=== PATIENT | female | born 1970 | race Caucasian/White ===

== ENCOUNTER 2018-07-24 16:37 | Inpatient (IN) | payer OTHER ==
[~2018-07-24] VITALS: Ht 170.2 cm; Wt 89.4 kg
--- NOTE | ~2018-07-24 | HC ---
[facility] [place] [address] CONSULTATION Name: ABBIE CASSIDY Room #: 207-P [facility] IN M.R.#: [id number] Admission: 07/24/18 Attend Phys: Richard García MD Discharge: 07/25/18 Date of : 72 Report #: [id number] THIS REPORT FOR: //name// CC: Amos García HISTORY OF PRESENT ILLNESS: The patient is a 48-year-old right-handed woman, who was admitted to the hospital on 07/24/2018 under the care of Dr. Richard García. Chief complaint is vertigo, which was worse than usual, described as occurring shortly after she stood up. She noticed facial numbness bilaterally, as well as numbness in her hands shortly after. The patient did not seek care immediately, but over the course of the day, it tended to get worse and felt worse when she awoke on the day of admission. At the present time, it is much better. She states that she has had chronic vertigo for at least 15 years, which is position related and for which she has to focus on certain points in the room to walk. She has not fallen. The patient denies hearing loss, or ringing in her ears except on rare occasions. She denies nausea and vomiting. She states that a number of years ago, she noted blood in her stool and a workup suggested the possibility of Crohn's disease, although she has had several colonoscopies since then and reports that the spring tester believes that she does not have Crohn's disease. She takes no medication and is having no GI symptoms. She was diagnosed with fibromyalgia about 15 years ago as well, for which she takes no medication, although she was given Prozac at one point, but it tended to make her anxiety worse. The patient has had trauma to her back. She reports chronic back pain from a fracture T12 from an accident in 1994 and a lumbar injury from another accident in 1998. She was prescribed tramadol for pain, but she does not take it. She reports that she is under more stress than usual. She presents the idea that she can see her grandchildren less because of problems with the parents' separation or divorce. She does not feel refreshed when she wakes and has frequent panic attacks. PAST MEDICAL HISTORY: Past history is otherwise unremarkable. SOCIAL HISTORY: The patient smokes about a pack a day. She does not drink alcohol. 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 It is too small to do any active interventions [place] [address] CONSULTATION Name: ABBIE CASSIDY Room #: 207-P [facility] IN M.R.#: [id number] Admission: 07/24/18 Attend Phys: Richard García MD Discharge: 07/25/18 Date of : 72 Report #: [id number] REVIEW OF SYSTEMS: A 12-point review of systems is otherwise negative with the exception of significant sleep deprivation, anxiety, and panic attacks. PHYSICAL EXAMINATION: VITAL SIGNS: Blood pressure 109/57, temperature 37.2, pulse 57. NECK: Supple. EXTREMITIES: There is no peripheral edema. NEUROLOGIC: She is alert and oriented with normal memory and speech. Cranial nerves show pupils. The extraocular movements are full without nystagmus. Visual [place] are full to confrontation. Facial sensation and mobility were normal. Hearing was intact bilaterally. Tongue was normal. Motor testing revealed full power in arms and legs. There was no pronator drift or involuntary movements. Sensation was intact to light touch and pin. Coordination testing was done well with [id number]. Reflexes were 2+ and equal from side to side. The toes were downgoing. The patient could get up out of bed. She was a little unsteady when she first was up, but she could stand with both feet together without problems. IMPRESSION: The patient has a chronic vertigo, which he described as spinning or movement of the room. More frequently, this symptom has increased with stress and anxiety. Her numbness in the face and hands most likely represents a hyperventilation phenomenon. I recommended that she talk with her primary care regarding an alternative to Prozac, which she could not take because it increased her anxiety, but a medication that would help promote sleep and treat anxiety like Effexor would be recommended. I concur that there was no need to do any further workup for the possible tiny left internal carotid artery aneurysm at this time, but she should be followed up and I strongly recommended that she abstain from smoking. <ELECTRONICALLY SIGNED> By: Isacc Nicole MD 07/28/18 0920 [id number] Isacc Nicole MD /nt
[2018-07-24 17:50] VITALS: BP 119/73
[2018-07-24 19:11] LABS: HEMATOCRIT 39.2 % (37.0-47.0); HEMOGLOBIN 13.4 gm/dL (12.0-15.0); MCH 30.3 pg (26.0-34.0); MCHC 34.3 g/dL (28.0-37.0); MCV 88.3 fL (80.0-100.0); RBC 4.44 mil/uL (4.20-5.00); RDW 13.2 % (10.5-14.5); WBC 9.2 thou/uL (4.0-11.0)
[2018-07-24 19:21] LABS: CALCIUM 9.3 mg/dL (8.5-10.1); CREATININE 0.8 mg/dL (0.6-1.0); POTASSIUM 3.8 mmol/L (3.5-5.1)
[2018-07-24 19:26] LABS: ALBUMIN 3.7 g/dL (3.4-5.0); TOTAL BILIRUBIN 0.4 mg/dL (<0.1-1.0); TOTAL PROTEIN 7.9 g/dL (6.4-8.2)
[2018-07-24 19:48] VITALS: BP 122/69
[2018-07-24 23:49] VITALS: BP 116/71; BP 120/72
[2018-07-24 23:51] VITALS: BP 122/75
[2018-07-25 00:13] LABS: URINE BILIRUBIN NEGATIVE (Negative); URINE BLOOD 1+ (Negative); URINE CLARITY CLEAR; URINE COLOR YELLOW; URINE GLUCOSE-RANDOM* NEGATIVE (Negative); URINE KETONES NEGATIVE (Negative); URINE LEUKOCYTES-REFLEX NEGATIVE (Negative); URINE NITRITE-REFLEX NEGATIVE (Negative); URINE PROTEIN (DIPSTICK) NEGATIVE (Negative); URINE SPECIFIC GRAVITY >= 1.030 (1.005-1.035); URINE UROBILINOGEN 0.2 E.U./dl (0.2-1.0)
[2018-07-25 00:19] LABS: BACTERIA-REFLEX 1-9 Few /HPF (None Seen); CASTS None Seen /LPF (None Seen); CRYSTALS None Seen /LPF (None Seen); MUCUS 0-3 Light strn/LPF (None Seen); SQUAMOUS 4-10 Moderate /LPF (0-3); URINE RBC 0-2 Rare /HPF (0-2); URINE WBC-REFLEX None Seen /HPF (0-5)
[2018-07-25 04:06] VITALS: BP 102/53
[2018-07-25 04:25] LABS: HEMATOCRIT 40.5 % (37.0-47.0); HEMOGLOBIN 13.2 gm/dL (12.0-15.0); MCH 29.3 pg (26.0-34.0); MCHC 32.6 g/dL (28.0-37.0); MCV 90.1 fL (80.0-100.0); RBC 4.5 mil/uL (4.20-5.00); RDW 13.6 % (10.5-14.5); WBC 8.7 thou/uL (4.0-11.0)
[2018-07-25 04:48] LABS: ANION GAP 9 mmol/L (7-16); BUN 12 mg/dL (7-18); CALCIUM 8.5 mg/dL (8.5-10.1); CHLORIDE 105 mmol/L (98-107); CHOLESTEROL 176 mg/dL (<200); CO2 27 mmol/L (21-32); CREATININE 0.8 mg/dL (0.6-1.0); GLUCOSE 93 mg/dL (74-106); HDL CHOLESTEROL 38 mg/dL (>40); LDL CHOLESTEROL 118 mg/dL (<100); SODIUM 141 mmol/L (136-145); TC:HDL 4.6 Ratio (Not establshd); TRIGLYCERIDE 100 mg/dL (<150); VLDL 20 mg/dL (<40)
[2018-07-25 04:49] LABS: SERUM ASSESSMENT Slight Lipemia
[2018-07-25 07:33] VITALS: BP 109/57
[2018-07-25 11:38] VITALS: BP 114/66
[2018-07-25 15:35] VITALS: BP 123/74
[2018-07-25] MEDS ORDERED: ANTIVERT25 MG PO (16:26)
[2018-07-25] MEDS ORDERED: CLARITIN10 MG PO (16:26)
[2018-07-25 16:38] VITALS: BP 123/74
== END 2018-07-25 17:25 | disposition home or self-care (01) | DRG 300 ==
LOC: 2N 16:37 → ENTRNSPT 07-25 17:10 → 2N 07-25 17:25
PROVIDERS: Hospitalist
DX: I72.0 Aneurysm of carotid artery (principal); K50.90 Crohn's disease, unspecified, without complications; G89.29 Other chronic pain; M54.9 Dorsalgia, unspecified; F17.210 Nicotine dependence, cigarettes, uncomplicated; F41.9 Anxiety disorder, unspecified; E78.5 Hyperlipidemia, unspecified; I10 Essential (primary) hypertension; Z82.49 Family history of ischemic heart disease and other diseases of the circulatory system; Z87.81 Personal history of (healed) traumatic fracture; Z79.899 Other long term (current) drug therapy
CPT/HCPCS: 10081

== ENCOUNTER 2018-07-26 11:31 | Emergency (ER) | payer OTHER ==
[~2018-07-26] VITALS: Ht 170.2 cm; Wt 89.4 kg
--- NOTE | ~2018-07-26 | EKG ---
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
[~2018-07-26 11:31] MED LIST: ANTIVERT25 MG PO; CLARITIN10 MG PO
[2018-07-26 13:57] LABS: ABSOLUTE NEUTROPHILS 4.9 thou/uL (1.4-8.2); BASOPHILS 0.9 % (0.0-2.0); EOSINOPHILS 2.4 % (0.0-3.0); HEMATOCRIT 39.5 % (37.0-47.0); HEMOGLOBIN 13.5 gm/dL (12.0-15.0); LYMPHOCYTES 29.5 % (24.0-44.0); MCH 30.6 pg (26.0-34.0); MONOCYTES 10.3 % (1.0-8.0); PLATELET COUNT 230 thou/uL (150-400); POLYS 56.9 % (36.0-66.0); RBC 4.39 mil/uL (4.20-5.00); RDW 13.4 % (10.5-14.5); WBC 8.7 thou/uL (4.0-11.0)
[2018-07-26 15:41] LABS: CALCIUM 8.8 mg/dL (8.5-10.1); CREATININE 0.9 mg/dL (0.6-1.0); POTASSIUM 3.5 mmol/L (3.5-5.1)
== END 2018-07-26 17:42 | disposition home or self-care (01) ==
LOC: ER 11:31
PROVIDERS: Emergency Medicine
DX: H81.392 Other peripheral vertigo, left ear (principal); F17.210 Nicotine dependence, cigarettes, uncomplicated; I10 Essential (primary) hypertension